=== PATIENT | male | born 1955 | race Caucasian/White ===

== ENCOUNTER → 2017-05-21 | Day surgery (SDC) | payer BC ==
[~2017-05-21] MED LIST: ANTIBIOTIC; ATORVASTATIN CA10 MG PO; CENTRUM SILVER1 EAC4 PO; LEXAPRO; LISINOPRIL10 MG PO; METOPROLOL TART25 MG PO; MULTI-VITAMIN1 TAB; ROBAXIN500 MG PO; TOPROL XL PO; VIT B6 PO; VITAMIN D2000 UNIT PO
--- NOTE | ~2017-05-21 | OR ---
Unit #: [id number] #: [id number] Patient: CRISTOPHER FAIRCHILD [id number] [address] [place], [place] [address] [id number] MR#: [id number] NAME: CRISTOPHER FAIRCHILD ROOM: Date of Procedure: 05/21/2017 Admission Date: 05/21/2017 Surgeon: Clark Waggoner M.D. : 1955 Attending Physician: Clark Waggoner M.D. Referring Physician: Clark Waggoner M.D. Primary Care Physician: Anup Gupta Jr., M.D. OPERATIVE REPORT PREOPERATIVE DIAGNOSIS Colorectal cancer screening in an average-risk patient. PROCEDURE PERFORMED Colonoscopy up to cecum and terminal ileum with good prep and excellent visualization. POSTOPERATIVE DIAGNOSES Medium-sized internal hemorrhoids. Otherwise, normal examination up to cecum. No polyps or diverticula were seen. RECOMMENDATIONS Repeat colonoscopy in 10 years. SEDATION USED MAC. DESCRIPTION OF PROCEDURE Following detailed explanation of potential risks and complications of a colonoscopy, namely perforation, bleeding, and complications related to sedation, the patient was brought to GI lab and laid in the left lateral decubitus position. A digital rectal examination was performed, which was normal. Lubricated tip of the Olympus video colonoscope was inserted through the anus and advanced under direct vision. The scope was advanced past rectosigmoid into descending colon. No diverticula were noted in this area. The scope tip was then navigated all the way up to cecum with visualization of the ileocecal valve and the appendiceal orifice. Preparation was good with good visualization and photodocumentation was obtained. Last few inches of the terminal ileum were also visualized after intubation of the ileocecal valve and appeared normal. Successive segments of the colonic mucosa were examined upon withdrawal and appeared unremarkable. There being no polyps, mass lesions, AVMs, or diverticula. The patient did have medium-sized internal hemorrhoids. These were seen on retroflexion. The scope was then withdrawn and the patient returned to the recovery area. He tolerated the procedure without any postprocedure complications. Dictated by... Clark Waggoner M.D. AK/modl Unit #: [id number] #: [id number] Patient: CRISTOPHER FAIRCHILD TD: 05/21/2017 16:55 JOB #: [id number] CC: Anup Gupta Jr., M.D. OPERATIVE REPORT Page 1 of 1 X Clark Waggoner MD PROCEDURE OPERATIVE NOTE
== END | disposition home or self-care (01) ==
LOC: COPS 14:25
DX: Z12.11 Encounter for screening for malignant neoplasm of colon (principal); K64.8 Other hemorrhoids; J44.9 Chronic obstructive pulmonary disease, unspecified; Z88.5 Allergy status to narcotic agent; Z79.899 Other long term (current) drug therapy